=== PATIENT | female | born 1950 | race Caucasian/White ===

== ENCOUNTER 2023-02-17 20:08 | Inpatient (IN) | payer BC ==
[~2023-02-17] VITALS: Ht 160 cm; Wt 54.5 kg
--- NOTE | 2023-02-17 20:58 | NUR ---
SPOKE WITH MD REGARDING PT PRESENTATION. ORDERS RECIEVED.
[2023-02-17 21:34] LABS: BASOPHILS % (AUTO) 0.7 % (0-1); EOSINOPHILS % (AUTO) 0.2 % (0-6); HEMATOCRIT 42.5 % (35.0-45.0); HEMOGLOBIN 13.7 g/dl (12.0-16.0); LYMPHOCYTES # (AUTO) 0.6 X10'3 (1.1-4.8); LYMPHOCYTES % (AUTO) 9.2 % (21-51); MEAN CORPUSCULAR HEMOGLOBIN 29.2 PG (27.0-31.0); MEAN CORPUSCULAR HGB CONC 32.1 g/dL (33.0-36.5); MEAN CORPUSCULAR VOLUME 90.9 FL (78-98); MEAN PLATELET VOLUME 7.5 FL (7.4-10.4); MONOCYTES # (AUTO) 0.7 X10'3 (0-0.9); MONOCYTES % (AUTO) 10.4 % (2-12); NEUTROPHILS # (AUTO) 5.2 X10'3 (1.8-7.7); NEUTROPHILS % (AUTO) 79.5 % (42-75); PLATELET COUNT 238 X10'3 (140-440); RED BLOOD COUNT 4.68 X10'6 (4.20-5.60); RED CELL DISTRIBUTION WIDTH 14.5 % (11.5-14.5); WHITE BLOOD COUNT 6.5 X10'3 (4.5-11.0)
[2023-02-17 21:49] LABS: ALANINE AMINOTRANSFERASE 20 U/L (12-78); ALBUMIN 3.9 G/DL (3.4-5.0); ALBUMIN/GLOBULIN RATIO 1.3 (1.1-1.5); ALKALINE PHOSPHATASE 58 IU/L (46-116); ANION GAP 11 (8-16); ASPARTATE AMINO TRANSFERASE 19 U/L (10-37); BILIRUBIN,TOTAL 0.7 MG/DL (0.1-1.0); BLOOD UREA NITROGEN 20 MG/DL (7-18); BUN/CREATININE RATIO 23.8 (10.0-20.0); CALCIUM 9.3 MG/DL (8.5-10.1); CHLORIDE 102 MMOL/L (99-107); CREATININE 0.84 MG/DL (0.40-0.90); GLUCOSE 140 MG/DL (70-104); POTASSIUM 4.1 MMOL/L (3.5-5.1); SODIUM 140 MMOL/L (135-145); TOTAL CARBON DIOXIDE 27.2 MMOL/L (24-32); TOTAL PROTEIN 6.9 G/DL (6.4-8.2); eCRCL 52 ML/MIN; eGFR 67 ML/MIN
[2023-02-17] MEDS ORDERED: acetaminophen 325mg tablet PO ONE (23:15)
[2023-02-17] MEDS ORDERED: pantoprazole 40 MG vial IV ONE (23:15)
[2023-02-17] MEDS ORDERED: ondansetron/PF 4mg/2ml inj IV ONE (23:15)
[2023-02-17] MEDS ORDERED: fentaNYL/PF 50MCG/1 ML 2ML syringe IV ONE (23:15)
[2023-02-17] MEDS ORDERED: meclizine 12.5mg tablet PO ONE (23:15)
[2023-02-17] MEDS ORDERED: labetalol 20mg/4ml (5mg/ml) syringe IV ONE (23:25)
[2023-02-18] VITALS (7 sets, daily range): BP systolic 154–193; BP diastolic 60–78; PULSE 74–88; RESP 14–16; TEMP 98–98.9; O2SAT 94–96
[2023-02-18] MEDS ORDERED: pantoprazole 40MG/NS 100ML BAG 100 ML IV ONE (00:20)
[2023-02-18 00:34] LABS: MAGNESIUM 2.1 MG/DL (1.5-2.4); PHOSPHORUS 3.2 MG/DL (2.3-4.5); PRO BRAIN NATRIURETIC PEPTIDE 545 PG/ML (0-125); THYROID STIMULATING HORMONE 2.33 ulU/ml (0.34-4.50)
[2023-02-18 00:43] LABS: C-REACTIVE PROTEIN < 0.05 MG/DL (0.0-0.5)
[2023-02-18 00:51] LABS: APTT 22 SECONDS (22-32); INR 0.9 INR; PROTHROMBIN TIME 10.2 SECONDS (9.0-12.0)
[2023-02-18] MEDS ORDERED: HYDROcodone/acetaminophen 5mg/325mg tablet PO PRN (01:40)
[2023-02-18] MEDS ORDERED: potassium Cl 20 mEq SR tablet PO PRN ×2 (01:40)
[2023-02-18] MEDS ORDERED: magnesium Cl slow-release 64mg tablet PO PRN (01:40)
[2023-02-18] MEDS ORDERED: acetaminophen 325mg tablet PO PRN (01:40)
[2023-02-18] MEDS ORDERED: potassium Cl 40MEQ/1/2NS 520ml 520 ML IV PRN (01:40)
[2023-02-18] MEDS ORDERED: magnesium 2GM in 50ml NS 50 ML IV PRN (01:40)
[2023-02-18] MEDS ORDERED: magnesium 4gm in 100ml NS 100 ML IV PRN (01:40)
--- NOTE | 2023-02-18 04:08 | NUR ---
0230 PURE WICK PLACED BY MONTRELL GIPSON AND ATTACHED TO SUCTION 0405 NO URINE OUTPUT
[2023-02-18] MEDS: morphine 2 MG/ML inj. syringe IV PRN ×2 (04:43→16:13)
[2023-02-18] MEDS: normal saline 1000ml 1,000 ML IV SCH ×2 (04:47→19:21)
[2023-02-18] MEDS: ondansetron/PF 4mg/2ml inj IV PRN (04:59)
--- NOTE | 2023-02-18 05:54 | NUR ---
RC'D VERBAL REPORT FROM JJ BALTAZAR AND ASSUMED CARE OF PATIENT UPON HER ARRIVAL TO THE UNIT AND TRANSFERED IN BED FROM THE [facility]. AWAKE, ALERT AND OREINTED X4. C/O HOLLOWAY PAIN 8/10 WITH NAUSEA. MEDICATED WITH MORPHINE AND GIVEN ZOFRAN FOR THE NAUSEA. STATED SHE DOES HAVE SOME PHOTOSENSITIVITY TO LIGHTS IN THE ROOM, TOWEL FOLDED AND PLACED OVER HER EYES. INITIAL ASSMT COMPLETED. SKIN CHECK DONE. CALL LIGHT IN REACH AND PATIENT GIVEN INSTRUCTION ON HOSPITAL ROUTINE.
[2023-02-18 06:12] LABS: POTASSIUM 4.1 MMOL/L (3.5-5.1)
--- NOTE | 2023-02-18 06:45 | NUR ---
Patient in room ORTHO 4024. I have received report from Afua and had the opportunity to ask questions and assume patient care.
--- NOTE | 2023-02-18 06:49 | NUR ---
REPORT GIVEN TO BRITTANY BALTAZAR
--- NOTE | 2023-02-18 06:55 | NUR ---
Patient in room ORTHO 4024. I have received report from Afua and had the opportunity to ask questions and assume patient care.
[2023-02-18] MEDS: K and/or MAG REPLACEMENT MC SCH ×2 (08:00→19:21)
--- NOTE | 2023-02-18 10:20 | NUR ---
RE: Fei in 4024B, BP 193/74, escobar Corral
[2023-02-18] MEDS ORDERED: cloNIDine 0.1 mg tablet PO ONE (10:40)
[2023-02-18] MEDS ORDERED: ketorolac tromethamine 15mg/ml inj. IM PRN (10:40)
[2023-02-18] MEDS ORDERED: proCHLORperazine 10 MG/2 ml inj IV PRN (10:40)
--- NOTE | 2023-02-18 11:07 | NUR ---
Per MD and recommendation of telemedicine consult, new med orders received. Give the 2gm mag sulfate as we do not stock the 1gm IV.
[2023-02-18] MEDS: diphenhydrAMINE 50 mg/ml inj IV PRN (11:39)
[2023-02-18] MEDS: ketorolac tromethamine 15mg/ml inj. IV PRN (11:49)
[2023-02-18] MEDS ORDERED: SUMA25TA9 PO (13:07)
[2023-02-18] MEDS ORDERED: ZOLP5TAB8 PO (13:07)
[2023-02-18] MEDS ORDERED: LORA-269 PO (13:07)
[2023-02-18] MEDS ORDERED: HYDR-3972 PO (13:07)
[2023-02-18] MEDS ORDERED: CARI3CAP PO (13:07)
[2023-02-18] MEDS ORDERED: VENL150C58 PO (13:07)
[2023-02-18] MEDS ORDERED: CYAN10007 IM (13:07)
[2023-02-18] MEDS ORDERED: VENL75CA61 PO (13:07)
[2023-02-18] MEDS ORDERED: BACL20TA PO (13:07)
--- NOTE | 2023-02-18 15:30 | NUR ---
Re: Fei in 1190B, pt said HOLLOWAY resolved, c/o pain in legs (restlessness), asking for pain medication, morphine is ordered, other options? Shayna
--- NOTE | 2023-02-18 18:10 | NUR ---
Problems reprioritized. Patient report given, questions answered & plan of care reviewed with
[2023-02-18] MEDS ORDERED: HYDROcodone/acetaminophen 10/325mg tab PO PRN (20:15)
[2023-02-18] MEDS ORDERED: baclofen 10mg tablet PO PRN (20:15)
[2023-02-18] MEDS ORDERED: LORazepam 1 MG tablet PO PRN (20:15)
[2023-02-18] MEDS ORDERED: SUMAtriptan 25 MG tablet PO PRN (20:15)
[2023-02-18] MEDS ORDERED: venlafaxine XR 75mg capsule (Q24H) PO SCH ×2 (21:00)
[2023-02-18] MEDS ORDERED: zolpidem 5mg tablet PO SCH (21:00)
[2023-02-19] MEDS: morphine 2 MG/ML inj. syringe IV PRN ×2 (02:01→06:10)
[2023-02-19 06:00] VITALS: BP 184/77; PULSE 75; RESP 16; TEMP 98.8; O2SAT 93
[2023-02-19 06:53] LABS: BASOPHILS # (AUTO) 0.1 X10'3 (0-0.2); BASOPHILS % (AUTO) 1.3 % (0-1); EOSINOPHILS # (AUTO) 0.2 X10'3 (0-0.9); EOSINOPHILS % (AUTO) 3.2 % (0-6); HEMATOCRIT 37.1 % (35.0-45.0); HEMOGLOBIN 12.1 g/dl (12.0-16.0); LYMPHOCYTES # (AUTO) 1.1 X10'3 (1.1-4.8); LYMPHOCYTES % (AUTO) 22.5 % (21-51); MEAN CORPUSCULAR HEMOGLOBIN 29.4 PG (27.0-31.0); MEAN CORPUSCULAR HGB CONC 32.6 g/dL (33.0-36.5); MEAN CORPUSCULAR VOLUME 90.3 FL (78-98); MEAN PLATELET VOLUME 7.6 FL (7.4-10.4); MONOCYTES # (AUTO) 0.7 X10'3 (0-0.9); MONOCYTES % (AUTO) 14.6 % (2-12); NEUTROPHILS # (AUTO) 2.9 X10'3 (1.8-7.7); NEUTROPHILS % (AUTO) 58.4 % (42-75); PLATELET COUNT 198 X10'3 (140-440); RED BLOOD COUNT 4.12 X10'6 (4.20-5.60); RED CELL DISTRIBUTION WIDTH 13.8 % (11.5-14.5); WHITE BLOOD COUNT 4.9 X10'3 (4.5-11.0)
--- NOTE | 2023-02-19 07:02 | NUR ---
Problems reprioritized. Patient report given, questions answered & plan of care reviewed with RJ. Addendum: 02/19/23 at 0703 by Chema Blood RN Amended: Links added.
[2023-02-19 07:06] LABS: ALBUMIN 3.3 G/DL (3.4-5.0); ANION GAP 5 (8-16); BLOOD UREA NITROGEN 17 MG/DL (7-18); BUN/CREATININE RATIO 24.3 (10.0-20.0); CALCIUM 8.6 MG/DL (8.5-10.1); CHLORIDE 105 MMOL/L (99-107); GLUCOSE 84 MG/DL (70-104); MAGNESIUM 1.9 MG/DL (1.5-2.4); POTASSIUM 3.6 MMOL/L (3.5-5.1); SODIUM 140 MMOL/L (135-145); TOTAL CARBON DIOXIDE 29.8 MMOL/L (24-32); eCRCL 62 ML/MIN; eGFR 83 ML/MIN
[2023-02-19 08:00] VITALS: RESP 16; O2SAT 93
[2023-02-19] MEDS ORDERED: CARIPRAZINE 1.5 MG CAPSULE PO SCH (08:00)
[2023-02-19] MEDS: K and/or MAG REPLACEMENT MC SCH (08:00)
[2023-02-19] MEDS ORDERED: SUMAtriptan 25 MG tablet PO PRN (09:30)
[2023-02-19 10:00] VITALS: BP 185/78; PULSE 76; RESP 16; TEMP 98; O2SAT 93
[2023-02-19] MEDS: ketorolac tromethamine 15mg/ml inj. IV PRN (11:07)
[2023-02-19] MEDS: ondansetron/PF 4mg/2ml inj IV PRN (11:07)
[2023-02-19] MEDS: diphenhydrAMINE 50 mg/ml inj IV PRN (11:08)
[2023-02-19] MEDS ORDERED: SUMAtriptan 25 MG tablet PO ONE (11:20)
--- NOTE | 2023-02-19 13:27 | NUR ---
Malnutrition consult: Per RN malnutrition screen, pt is unsure of wt loss and a decreased in PO intake/appetite. Pt seen at bedside, states no changes in eating habits and her appetite has been the same for a while. Pt reports UBW of 130 pounds however it has been years since she has seen the number on the scale and states her UBW is more like 120 pounds. Noted current non scaled wt this admit is reported UBW, pending scaled wt this admit. Pt states she gradually lost wt over the years but no big changes recently. Pt states she does not like protein shakes however would like her protein cut up; communicated with dietary. Also RD noticed adaptive silverware to breakfast and added it to lunch and dinner. Pt is currently on a heart healthy and carbohydrate controlled diet, however carbohydrate controlled restriction not appropriate given no diabetes history;discussed with RN. Pt appeared nourished with no physical indications of muscle or fat wasting at this time and additionally no edema at this time. Pt does not meet a minimum of two malnutrition criteria at this time. Will continue to monitor. Addendum: 02/19/23 at [address] Amended: Links added.
[2023-02-19] MEDS: normal saline 1000ml 1,000 ML IV SCH (15:50)
--- NOTE | 2023-02-19 16:07 | NUR ---
I have reviewed and agree with interventions, assessments, and documentation by Tiffanie Tabor LVN.
--- NOTE | 2023-02-19 17:45 | NUR ---
Patient discharged home via POV with daughter. ALL personal belongings sent with. PIV discontinued with tip in tact. Patient is alert and appropriate at the time of discharge.
[2023-02-20] MEDS ORDERED: pantoprazole 40mg Tablet.DR PO SCH (07:30)
[2023-03-03] MEDS ORDERED: MECL-159 PO (00:21)
[2023-03-15] MEDS ORDERED: cyanocobalamin 1,000 mcg/ml inj IM SCH (08:00)
== END 2023-02-19 17:48 | disposition home or self-care (01) | DRG 103 ==
LOC: ER 20:10 → OBSVTOIN 02-18 01:42 → ED HOLD 02-18 01:42 → ORTHO 4S 02-18 04:15
PROVIDERS: ADMIT Internal Medicine; ATTEND Internal Medicine
DX: G43.901 Migraine, unspecified, not intractable, with status migrainosus (principal); I10 Essential (primary) hypertension; G35 Multiple sclerosis; Z20.822 Contact with and (suspected) exposure to COVID-19; E78.5 Hyperlipidemia, unspecified; F32.A Depression, unspecified; M62.838 Other muscle spasm; R73.03 Prediabetes; R77.8 Other specified abnormalities of plasma proteins
CPT/HCPCS: 36415; 70450; 71045; 80048; 80053; 83605; 83735; 83880; 84100; 84132; 84443; 84484; 85025; 85610; 85651; 85730; 86140; 87081; 87811; 93005; 99285; C9113; G0378; J0780; J1200; J1885; J2270; J2405; J3010; J3475; J3490; J7030; J8597

== ENCOUNTER 2023-03-02 13:48 | Emergency (ER) | payer BC ==
[~2023-03-02] VITALS: Ht 167.6 cm; Wt 54.5 kg
[~2023-03-02 13:48] MED LIST: BACL20TA PO; CARI3CAP PO; CYAN10007 IM; HYDR-3972 PO; LORA-269 PO; SUMA25TA9 PO; VENL150C58 PO; VENL75CA61 PO; ZOLP5TAB8 PO
[2023-03-02 14:10] LABS: BASOPHILS % (AUTO) 0.6 % (0-1); EOSINOPHILS % (AUTO) 0.5 % (0-6); HEMATOCRIT 43.9 % (35.0-45.0); HEMOGLOBIN 14.2 g/dl (12.0-16.0); LYMPHOCYTES % (AUTO) 14.8 % (21-51); MEAN CORPUSCULAR HEMOGLOBIN 29.3 PG (27.0-31.0); MEAN CORPUSCULAR HGB CONC 32.3 g/dL (33.0-36.5); MEAN CORPUSCULAR VOLUME 90.8 FL (78-98); MEAN PLATELET VOLUME 7.8 FL (7.4-10.4); MONOCYTES # (AUTO) 0.7 X10'3 (0-0.9); MONOCYTES % (AUTO) 10.3 % (2-12); NEUTROPHILS # (AUTO) 4.9 X10'3 (1.8-7.7); NEUTROPHILS % (AUTO) 73.8 % (42-75); PLATELET COUNT 281 X10'3 (140-440); RED BLOOD COUNT 4.84 X10'6 (4.20-5.60); RED CELL DISTRIBUTION WIDTH 13.9 % (11.5-14.5); WHITE BLOOD COUNT 6.6 X10'3 (4.5-11.0)
[2023-03-02 14:22] LABS: ALANINE AMINOTRANSFERASE 20 U/L (12-78); ALBUMIN 3.9 G/DL (3.4-5.0); ALBUMIN/GLOBULIN RATIO 1.3 (1.1-1.5); ALKALINE PHOSPHATASE 59 IU/L (46-116); ANION GAP 10 (8-16); ASPARTATE AMINO TRANSFERASE 21 U/L (10-37); BILIRUBIN,TOTAL 0.6 MG/DL (0.1-1.0); BLOOD UREA NITROGEN 24 MG/DL (7-18); BUN/CREATININE RATIO 24.5 (10.0-20.0); CALCIUM 9.8 MG/DL (8.5-10.1); CHLORIDE 100 MMOL/L (99-107); CREATININE 0.98 MG/DL (0.40-0.90); GLUCOSE 123 MG/DL (70-104); SODIUM 138 MMOL/L (135-145); TOTAL CARBON DIOXIDE 28.5 MMOL/L (24-32); eCRCL 46 ML/MIN; eGFR 56 ML/MIN
[2023-03-02 14:24] LABS: POTASSIUM 4.5 MMOL/L (3.5-5.1)
[2023-03-02 14:30] LABS: PRO BRAIN NATRIURETIC PEPTIDE 520 PG/ML (0-125)
[2023-03-02 20:14] VITALS: TEMP 98.5
--- NOTE | 2023-03-02 20:14 | NUR ---
DR COPELAND NOTIFIED OF HIGH BP FROM PT [facility]. PT USUALLY TAKES PROPANOLOL 60MG AT BEDTIME BUT DID NOT HAVE TONIGHTS DOSE DUE TO BEING HERE IN [facility]. PER DR COPELAND, GIVE PROPANOLOL 60MG PO ONCE.
--- NOTE | 2023-03-02 20:16 | NUR ---
CORRECTION: PROPRANOLOL, NOT PROPANOLOL.
[2023-03-02] MEDS ORDERED: INDLA60C PO (20:17)
[2023-03-02] MEDS: propranolol LA 60 MG cap.SA.24H PO SCH (20:38)
[2023-03-02] MEDS: meclizine 12.5mg tablet PO ONE (22:43)
[2023-03-02] MEDS: acetaminophen 1,000mg/100ml IV 100 ML IV STA (22:44)
[2023-03-02] MEDS: metoclopramide 5 mg/ml inj IV ONE (22:44)
[2023-03-02] MEDS: normal saline 500ml IV soln 500 ML IV ONE (22:44)
[2023-03-02] MEDS: diphenhydrAMINE 50 mg/ml inj IV ONE (22:44)
[2023-03-03] MEDS ORDERED: MECL-302 PO (00:21)
[2023-03-03 01:39] VITALS: BP 163/78; PULSE 70; RESP 16; O2SAT 98
== END 2023-03-03 01:41 | disposition home or self-care (01) ==
LOC: ER 13:49
DX: R51.9 Headache, unspecified (principal); I10 Essential (primary) hypertension; Z88.8 Allergy status to other drugs, medicaments and biological substances; Z79.899 Other long term (current) drug therapy
CPT/HCPCS: 36415; 71045; 80053; 82948; 83880; 84484; 85025; 93005; 96374; 96375; 99285; J0131; J1200; J2765; J7040; J8597